=== PATIENT | female | born 1995 | race Two or more races ===

== ENCOUNTER 2016-06-18 22:57 | Emergency (ER) | payer OTHER ==
[~2016-06-18] VITALS: Ht 172.7 cm; Wt 111.6 kg
[~2016-06-18 22:57] MED LIST: AZIT250T3 PO; MECL-86 PO; PROA1AER INH
[2016-06-19] MEDS ORDERED: cefTRIAXone SOD 1 GM in D5W MINI-BAG PLUS 50 ML IV ONE (05:15)
[2016-06-19] MEDS ORDERED: LIDOCAINE VISCOUS 2% SOLN 15ML UDC SS ONE (05:15)
[2016-06-19] MEDS ORDERED: ISOVUE-370 76% 100ML VIAL (Q9967) As Ordered ONE (05:27)
[2016-06-19 05:43] LABS: BASO # 0.1 K/mm3 (0.0-0.2); BASO % 1.4 % (0.0-1.0); EOS # 0.1 K/mm3 (0.0-0.50); EOS % 0.9 % (0.0-3.0); LARGE UNSTAINED CELL # 0.5 K/mm3 (0.0-0.4); LARGE UNSTAINED CELL % 6.2 % (0.0-4.0); LYMPH # 4.1 K/mm3 (1.5-6.5); LYMPH % 43.9 % (24.0-44.0); MEAN CORPUSCULAR HEMOGLOBIN 29.1 pg (27.0-33.0); MEAN CORPUSCULAR VOLUME 88.4 fl (80.0-96.0); MONO # 0.4 K/mm3 (0.0-0.8); MONO % 5.3 % (0.0-5.0); NEUTROPHILS # 3.5 K/mm3 (1.8-7.7); NEUTROPHILS % 42.3 % (36.0-66.0); PLATELET COUNT, AUTOMATED 182 k/mm3 (150-450); RED CELL DISTRIBUTION WIDTH 14.7 % (11.5-14.5); WHITE BLOOD COUNT 8.2 K/mm3 (4.0-10.0)
[2016-06-19 06:01] LABS: CONTROL LINE HCG INT CTR LINE PRESENT
[2016-06-19 06:11] LABS: ANION GAP 3 MEQ/L (8-16); BLOOD UREA NITROGEN 13 MG/DL (7-18); CALCIUM LEVEL 8.8 MG/DL (8.5-10.1); CARBON DIOXIDE LEVEL 30 MEQ/L (21-32); CHLORIDE LEVEL 105 MEQ/L (98-107); CREATININE FOR GFR 0.82 MG/DL (0.55-1.02); GLOMERULAR FILTRATION RATE > 60.0 (>60); GLUCOSE, FASTING 96 MG/DL (70-105); POTASSIUM SERUM 4.1 MEQ/L (3.5-5.1); SODIUM LEVEL 138 MEQ/L (136-145)
[2016-06-19] MEDS ORDERED: MORPHINE 4 MG/ML 1ML SYRINGE As Ordered ONE (06:33)
[2016-06-19] MEDS ORDERED: ONDANSETRON 4MG/2ML VIAL (J2405) As Ordered ONE (06:36)
[2016-06-19] MEDS ORDERED: MORPHINE 4 MG/ML 1ML SYRINGE IV PRN (06:45)
[2016-06-19] MEDS ORDERED: ONDANSETRON 4MG/2ML VIAL (J2405) IV ONE (06:45)
--- NOTE | 2016-06-19 07:20 | REPUSA ---
CLINICAL HISTORY: Sore throat. TECHNIQUE: Multiple axial CT images were obtained through the neck with IV contrast material. MPR cor onal and sagittal sequences were obtained. COMMENTS: Moderate hypertrophy of the palatine tonsils. Moderate hypertrophy of the posterior wall of the nasopharynx. Secondary mass effect on the pharyngeal air passage. Moderate bilateral enlargement of the cervical lymph nodes. Largest measures 2.3 cm on the right side. IMPRESSION: Hypertrophy of the adenoids. Hypertrophy of the palatine tonsils. Mass effect on the pharyngeal air passage without airway narrowing. Bilateral lymphadenopathy. Possible reactive. No drainable abscess formation. No critical airway narrowing. Thank you for your kind referral of this patient.
--- NOTE | 2016-06-19 07:30 | REPUSA ---
CLINICAL HISTORY: Abdominal pain. TECHNIQUE: Multiple axial, sagittal and coronal CT images were obtained through the abdomen and pelvi s after administration of intravenous contrast material. COMMENTS: The liver is mildly enlarged without mass or defect. There is no intra or extrahepatic biliary ductal dilatation. The spleen is moderately enlarged measuring 16.4 cm. The gallbladder is within normal li mits. The pancreas is of normal contour and attenuation characteristics. There is no evidence of adre nal mass. Both kidneys demonstrate prompt and equal nephrograms. The kidneys are normal in size, shape and conf iguration. There is no evidence of renal or ureteral mass. No renal or ureteral calculi are identifie d. There is no hydroureter or hydronephrosis. No evidence for appendicitis. There is no bowel wall thickening. No evidence for small or large bruce l obstruction. There is no evidence of abdominal ascites or lymphadenopathy. There is no evidence of intrinsic or extrinsic bladder mass. There is no pelvic ascites or lymphadeno jennifer. Mild diffuse thickening of the wall of the bladder. Images of the lung bases show no evidence of pleural or parenchymal mass. There are no pleural effusi ons. The bony structures are free of lytic or blastic lesions. Fat containing umbilical hernia without incarceration. IMPRESSION: Hepatosplenomegaly. No evidence of splenic rupture. No evidence of perisplenic fluid collection. Unremarkable perisplenic fat without acute changes. Thank you for your kind referral of this patient.
[2016-06-19 07:57] VITALS: BP 147/79
[2016-06-19] MEDS ORDERED: CLIN1CAP5 PO (08:05)
[2016-06-19] MEDS ORDERED: PRED10TA PO (08:08)
[2016-06-19] MEDS ORDERED: OXYC1TAB23 PO (08:09)
--- NOTE | 2016-06-20 20:59 | ED PDOC ---
Post-Departure Follow-Up [facility] faxed formal report of ct neck and abd for fu. pt also sent certieid letter. Rosa May MD Jun 20, 2016 20:59
== END 2016-06-19 08:35 | disposition home or self-care (01) ==
LOC: M ED 23:54
DX: J02.9 Acute pharyngitis, unspecified (principal); Z79.899 Other long term (current) drug therapy; Z88.0 Allergy status to penicillin

== ENCOUNTER → 2016-07-04 | Outpatient (REF) | payer OTHER ==
[~2016-07-04] MED LIST changes: +CLIN1CAP5 PO; +OXYC1TAB23 PO; +PRED10TA PO
[2016-07-04 12:04] LABS: BASO # 0.1 K/mm3 (0.0-0.2); BASO % 1.6 % (0.0-1.0); EOS # 0.1 K/mm3 (0.0-0.50); EOS % 2.6 % (0.0-3.0); LARGE UNSTAINED CELL # 0.1 K/mm3 (0.0-0.4); LARGE UNSTAINED CELL % 2.5 % (0.0-4.0); LYMPH # 2.2 K/mm3 (1.5-6.5); LYMPH % 36.9 % (24.0-44.0); MEAN CORPUSCULAR HEMOGLOBIN 29.3 pg (27.0-33.0); MEAN CORPUSCULAR VOLUME 91.6 fl (80.0-96.0); MONO # 0.4 K/mm3 (0.0-0.8); MONO % 7.3 % (0.0-5.0); NEUTROPHILS # 2.7 K/mm3 (1.8-7.7); PLATELET COUNT, AUTOMATED 229 k/mm3 (150-450); RED CELL DISTRIBUTION WIDTH 14.5 % (11.5-14.5); WHITE BLOOD COUNT 5.5 K/mm3 (4.0-10.0)
[2016-07-04 12:09] LABS: ALBUMIN 3.3 GM/DL (3.2-5.2); ALBUMIN/GLOBULIN RATIO 0.92 (1.00-1.93); ALKALINE PHOSPHATASE 72 U/L (45-117); ALT/SGPT 30 U/L (12-78); ANION GAP 6 MEQ/L (8-16); AST/SGOT 10 U/L (15-37); BILIRUBIN,TOTAL 0.4 MG/DL (0.2-1.0); BLOOD UREA NITROGEN 12 MG/DL (7-18); CALCIUM LEVEL 8.5 MG/DL (8.5-10.1); CARBON DIOXIDE LEVEL 27 MEQ/L (21-32); CHLORIDE LEVEL 108 MEQ/L (98-107); CHOLESTEROL LEVEL 156 MG/DL (<200); CREATININE FOR GFR 0.72 MG/DL (0.55-1.02); GLOMERULAR FILTRATION RATE > 60.0 (>60); GLUCOSE, FASTING 89 MG/DL (70-105); POTASSIUM SERUM 4.1 MEQ/L (3.5-5.1); SODIUM LEVEL 141 MEQ/L (136-145); TOTAL PROTEIN 6.9 GM/DL (6.4-8.2); TRIGLYCERIDES LEVEL 245 MG/DL (<150)
== END ==
LOC: M SFHCPLAZ 09:56
PROVIDERS: ATTEND Nurse Practitioner Family
DX: Z00.00 Encounter for general adult medical examination without abnormal findings (principal); K76.0 Fatty (change of) liver, not elsewhere classified; Z13.220 Encounter for screening for lipoid disorders; E55.9 Vitamin D deficiency, unspecified

== ENCOUNTER → 2016-10-16 | Outpatient (CLI) | payer OTHER ==
[~2016-10-16] MED LIST changes: +AZIT-12 PO; -AZIT250T3 PO; +CLIN150C14 PO; -CLIN1CAP5 PO; +IBUP80TA PO; +PERC5TAB12 PO; -PRED10TA PO; +PRED10TA2 PO; -PROA1AER INH; +PROAAER10 INH; +VALA500T2; +VITA-122
--- NOTE | 2016-10-16 09:18 | REP ---
LEFT UPPER QUADRANT ULTRASOUND: Real-time sonographic evaluation of the left upper quadrant performed. Spleen measures 12.2 x 6.6 x 12.5 cm with a splenic index of 1007. Findings are compatible with mild splenomegaly. Left kidney is normal in size and echotexture, measuring 11.8 x 4.2 x 4.4 cm. There is no left renal mass, hydronephrosis or nephrolithiasis. No free fluid is seen in the left upper quadrant. IMPRESSION: Mild splenomegaly. Signed by Roshan Talley MD 10/16/2016 11:57 A
== END ==
LOC: M RAD 06:47
PROVIDERS: ATTEND Nurse Practitioner Family
DX: R16.1 Splenomegaly, not elsewhere classified (principal)

== ENCOUNTER → 2016-10-18 | Outpatient (REF) | payer OTHER ==
[2016-10-18 18:25] LABS: BASO # 0.1 K/mm3 (0.0-0.2); BASO % 0.7 % (0.0-1.0); EOS # 0.2 K/mm3 (0.0-0.50); EOS % 2.2 % (0.0-3.0); LARGE UNSTAINED CELL # 0.1 K/mm3 (0.0-0.4); LARGE UNSTAINED CELL % 0.8 % (0.0-4.0); LYMPH # 1.5 K/mm3 (1.5-6.5); LYMPH % 16.8 % (24.0-44.0); MEAN CORPUSCULAR HEMOGLOBIN 29.8 pg (27.0-33.0); MEAN CORPUSCULAR HGB CONC 32.9 g/dl (32.0-36.5); MEAN CORPUSCULAR VOLUME 90.7 fl (80.0-96.0); MONO # 0.3 K/mm3 (0.0-0.8); MONO % 2.8 % (0.0-5.0); NEUTROPHILS # 6.7 K/mm3 (1.8-7.7); NEUTROPHILS % 76.6 % (36.0-66.0); PLATELET COUNT, AUTOMATED 258 k/mm3 (150-450); RED CELL DISTRIBUTION WIDTH 13.9 % (11.5-14.5); WHITE BLOOD COUNT 8.7 K/mm3 (4.0-10.0)
[2016-10-18 18:54] LABS: ALBUMIN 3.6 GM/DL (3.2-5.2); ALBUMIN/GLOBULIN RATIO 0.97 (1.00-1.93); ALKALINE PHOSPHATASE 84 U/L (45-117); ALT/SGPT 24 U/L (12-78); ANION GAP 8 MEQ/L (8-16); AST/SGOT 11 U/L (15-37); BILIRUBIN,TOTAL 0.4 MG/DL (0.2-1.0); BLOOD UREA NITROGEN 7 MG/DL (7-18); CALCIUM LEVEL 9.2 MG/DL (8.5-10.1); CARBON DIOXIDE LEVEL 26 MEQ/L (21-32); CHLORIDE LEVEL 106 MEQ/L (98-107); CREATININE FOR GFR 0.77 MG/DL (0.55-1.02); GLOMERULAR FILTRATION RATE > 60.0 (>60); GLUCOSE, FASTING 178 MG/DL (70-105); POTASSIUM SERUM 3.8 MEQ/L (3.5-5.1); SODIUM LEVEL 140 MEQ/L (136-145); TOTAL PROTEIN 7.3 GM/DL (6.4-8.2)
== END ==
LOC: M SFHCPLAZ 10-17 16:37
PROVIDERS: ATTEND Nurse Practitioner Family
DX: R16.1 Splenomegaly, not elsewhere classified (principal); R53.83 Other fatigue

== ENCOUNTER → 2016-10-22 | Outpatient (REF) | payer OTHER ==
[2016-10-22 16:45] LABS: BASO % 0.7 % (0.0-1.0); EOS # 0.2 K/mm3 (0.0-0.50); EOS % 2.2 % (0.0-3.0); LARGE UNSTAINED CELL # 0.1 K/mm3 (0.0-0.4); LARGE UNSTAINED CELL % 1.5 % (0.0-4.0); LYMPH # 1.4 K/mm3 (1.5-6.5); LYMPH % 20.5 % (24.0-44.0); MEAN CORPUSCULAR HGB CONC 33.1 g/dl (32.0-36.5); MEAN CORPUSCULAR VOLUME 90.4 fl (80.0-96.0); MONO # 0.4 K/mm3 (0.0-0.8); NEUTROPHILS # 4.9 K/mm3 (1.8-7.7); NEUTROPHILS % 70.1 % (36.0-66.0); PLATELET COUNT, AUTOMATED 262 k/mm3 (150-450); RED CELL DISTRIBUTION WIDTH 13.5 % (11.5-14.5); WHITE BLOOD COUNT 6.9 K/mm3 (4.0-10.0)
[2016-10-23 09:30] LABS: CONTROL LINE MONO RF C INT CTR LINE PRESENT
== END ==
LOC: M SFHCPLAZ 11:56
PROVIDERS: ATTEND Nurse Practitioner Family
DX: R53.83 Other fatigue (principal); J02.9 Acute pharyngitis, unspecified

== ENCOUNTER 2016-11-24 04:50 | Emergency (ER) | payer OTHER ==
[~2016-11-24] VITALS: Ht 170.2 cm; Wt 111.4 kg
[~2016-11-24 04:50] MED LIST changes: -IBUP80TA PO; -PERC5TAB12 PO; -VALA500T2; -VITA-122
[2016-11-24] MEDS ORDERED: VALA500T2 (05:22)
[2016-11-24] MEDS ORDERED: VITA-122 (05:22)
[2016-11-24] MEDS ORDERED: IBUP80TA PO (07:29)
[2016-11-24] MEDS ORDERED: PERC5TAB12 PO (07:29)
[2016-11-24] MEDS ORDERED: CLIN150C14 PO (07:29)
[2016-11-24] MEDS ORDERED: CLINDAMYCIN 150 MG CAP PO ONE (07:30)
[2016-11-24] MEDS ORDERED: IBUPROFEN 800 MG TAB PO ONE (07:30)
[2016-11-24 07:39] VITALS: BP 149/87
== END 2016-11-24 07:39 | disposition home or self-care (01) ==
LOC: M ED 04:50
DX: K08.89 Other specified disorders of teeth and supporting structures (principal); K04.7 Periapical abscess without sinus; K01.1 Impacted teeth; Z88.0 Allergy status to penicillin

== ENCOUNTER → 2017-03-29 | Outpatient (REF) | payer OTHER ==
[2017-03-29 13:16] LABS: HCG, SERUM QUANTITATIVE < 1.0 MIU/ML
[2017-03-29 14:49] LABS: TOTAL 25(OH) VITAMIN D 13.9 NG/ML (30.0-100.0)
== END ==
LOC: M SFHCPLAZ 09:16
DX: N92.6 Irregular menstruation, unspecified (principal); E55.9 Vitamin D deficiency, unspecified

== ENCOUNTER 2017-06-24 01:24 | Emergency (ER) | payer OTHER | END 2017-06-24 04:11 | disposition home or self-care (01) | LOC: M ED 01:24 | DX: S20.222A Contusion of left back wall of thorax, initial encounter (principal); W00.9XXA Unspecified fall due to ice and snow, initial encounter; Y92.099 Unspecified place in other non-institutional residence as the place of occurrence of the external cause; Y93.9 Activity, unspecified; Y99.9 Unspecified external cause status; Z79.899 Other long term (current) drug therapy; Z88.0 Allergy status to penicillin | CPT/HCPCS: 71250 ==

== ENCOUNTER → 2017-07-02 | Outpatient (CLI) | payer OTHER | LOC: M WUC 17:21 | DX: S20.212D Contusion of left front wall of thorax, subsequent encounter (principal) | CPT/HCPCS: 71101 ==